=== PATIENT | female | born 1960 | race Caucasian/White ===

== ENCOUNTER 2017-10-28 22:10 | Emergency (ER) | payer MEDICARE ==
[~2017-10-28] VITALS: Ht 157.5 cm; Wt 65.8 kg
[~2017-10-28 22:10] MED LIST: CIPRO500 MG PO; CLONAZEPAM 1 MG1 M1 PO; LAMOTRIGINE5 MG PO; LINZESS290 MCG PO
[2017-10-28 22:20] VITALS: BP 146/84
[2017-10-28] MEDS ORDERED: LIPITOR 10 MG10 M1 (22:25)
[2017-10-28] MEDS ORDERED: KEFLEX500 M1 PO (22:48)
[2017-10-28] MEDS ORDERED: DIFLUCAN150 M1 PO (23:14)
== END 2017-10-28 23:25 | disposition home or self-care (01) ==
LOC: M.ERS 22:10
DX: N76.0 Acute vaginitis (principal); Z88.1 Allergy status to other antibiotic agents; Z88.8 Allergy status to other drugs, medicaments and biological substances

== ENCOUNTER 2019-03-25 21:08 | Emergency (ER) | payer MEDICARE ==
[~2019-03-25] VITALS: Ht 167.6 cm; Wt 79.4 kg
[~2019-03-25 21:08] MED LIST changes: +DIFLUCAN150 M1 PO; +KEFLEX500 M1 PO; +LIPITOR 10 MG10 M1
[2019-03-25 21:21] VITALS: BP 168/112
[2019-03-25] MEDS ORDERED: MEDROLDOSEPACK PO (21:37)
[2019-03-25] MEDS ORDERED: FLEXERIL PO (21:37)
== END 2019-03-25 21:57 | disposition home or self-care (01) ==
LOC: M.ERS 21:08
DX: M26.602 Left temporomandibular joint disorder, unspecified (principal); Z88.1 Allergy status to other antibiotic agents; Z88.8 Allergy status to other drugs, medicaments and biological substances; Z98.890 Other specified postprocedural states; Z90.49 Acquired absence of other specified parts of digestive tract; Z90.722 Acquired absence of ovaries, bilateral